=== PATIENT | male | born 1975 | race Caucasian/White ===

== ENCOUNTER 2022-02-11 11:07 | Emergency (ER) | payer MEDICAID ==
[~2022-02-11] VITALS: Ht 167.6 cm; Wt 69.0 kg
[2022-02-11 11:49] VITALS: BP 138/98
[2022-02-11] MEDS ORDERED: DIPHENHYDRAMINE 50MG CAPSULE PO ONE (12:45)
[2022-02-11] MEDS ORDERED: DIPH25CA83 PO (12:55)
[2022-02-11] MEDS ORDERED: P50 MT (12:55)
== END 2022-02-11 13:08 | disposition home or self-care (01) ==
LOC: ER 11:07
DX: T78.40XA Allergy, unspecified, initial encounter (principal); X58.XXXA Exposure to other specified factors, initial encounter
CPT/HCPCS: 99283; Q0163